=== PATIENT | male | born 1990 | race Caucasian/White ===

== ENCOUNTER 2023-06-23 06:36 | Emergency (ER) | payer SELFPAY ==
[2023-06-23 06:42] VITALS: BP 154/84; PULSE 74; RESP 18; TEMP 36.9; O2SAT 97; BMI 26.4
--- NOTE | 2023-06-23 06:49 | PC.NURSE ---
right side jaw/tooth pain that woke patient from sleep at 0100. He states that he has not had pain like this before. Pain is in lower right jaw and radiates up. There is swelling to the right side of his face. He is given an ice pack.
--- NOTE | 2023-06-23 07:07 | ED.DENTAL1 ---
HPI - Dental/Oral General Chief complaint: Dental/Oral Stated complaint: jaw pain Time Seen by Provider: 06/23/23 06:54 Mode of arrival: walk-in Limitations: no limitations History of Present Illness HPI Narrative: 33-year-old here with pain of right-sided jaw pain. Symptoms started last night. He has not had any new trauma injury or recent dental problems. He does have dental insurance but he does not have a dentist. He is not on any medications NSAIDs or antibiotics. Does not have any ear pain. No other pain in the submandibular area or the chest. Related Data Home Medications ?Medication ?Instructions ?Recorded ?Confirmed No Known Home Medications 06/23/23 06/23/23 Allergies Allergy/AdvReac Type Severity Reaction Status Date / Time No Known Drug Allergies Allergy Verified 06/23/23 06:42 Exam Narrative Exam Narrative: Well-hydrated well-nourished male holding an ice pack to his right mandibular area. On examination he shows the right ear canal to be normal there is no pain with pulling on the pinna or pushing on the tragus. He has no tenderness over the TMJ. There is no adenitis in the submandibular area. Inspecting his oral cavity is essentially normal however he does have tenderness with percussion of tooth #30. There is no obvious swelling or abscess. The rest examination airway phonation and swallowing are all normal. Constitutional Vital Signs, click to edit/add: Last Vital Signs Temp 98.4 F 06/23/23 06:42 Pulse 74 06/23/23 06:42 Resp 18 06/23/23 06:42 BP 154/84 H 06/23/23 06:42 Pulse Ox 97 06/23/23 06:42 O2 Del Method Room Air 06/23/23 06:42 Course Vital Signs Vital signs: Vital Signs Temperature 98.4 F 06/23/23 06:42 Pulse Rate 74 06/23/23 06:42 Respiratory Rate 18 06/23/23 06:42 Blood Pressure 154/84 H 06/23/23 06:42 Pulse Oximetry 97 06/23/23 06:42 Oxygen Delivery Method Room Air 06/23/23 06:42 Temperature 98.4 F 06/23/23 06:42 Pulse Rate 74 06/23/23 06:42 Respiratory Rate 18 06/23/23 06:42 Blood Pressure 154/84 H 06/23/23 06:42 Pulse Oximetry 97 06/23/23 06:42 Oxygen Delivery Method Room Air 06/23/23 06:42 Discharge Plan Discharge Stand Alone Forms: Portal Instructions Chief Complaint: Dental/Oral Clinical Impression: Tooth ache Patient Disposition: Home, Self-Care Time of Disposition Decision: 07:14 Prescriptions / Home Meds: No Action No Known Home Medications Print Language: [place] Additional Instructions: [place] for severe pain otherwise take 3 ibuprofen every 6 hours/prednisone/follow-up with dentist Referrals: Physician,Non-Staff, MD [Primary Care Provider] - 1 week
[2023-06-23] MEDS: PENICILLIN V POTASSIUM 250 MG TABLET 500 MG PO (07:35)
== END 2023-06-23 07:40 | disposition home or self-care (01) ==
PROVIDERS: Emergency Provider Emergency Medicine Emergency Medical Services
DX: K08.89 Other specified disorders of teeth and supporting structures (principal)
CPT/HCPCS: 99283